=== PATIENT | male | born 1950 | race Caucasian/White ===

== ENCOUNTER 2017-04-14 19:32 | Inpatient (IN) | payer OTHER ==
[~2017-04-14] VITALS: Ht 177.8 cm; Wt 117.9 kg
--- NOTE | ~2017-04-14 | EKG ---
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1950 Requested By: Alex Holt Order Number: [id number] MD: Rodo Hernandez Measurements Intervals [place] Rate: 146 P: -27 ND: 94 QRS: 89 QRSD: 82 T: -33 QT: 291 QTc: 454 Interpretive Statements Sinus tachycardia Borderline right axis deviation Nonspecific ST and T wave abnormality No previous ECG available for comparison Electronically Signed On 04-15-2017 13:05:36 [employer]ULT[employer] by Rodo Hernandez [email or web address] <ELECTRONICALLY SIGNED> By: Rodo Hernandez MD, [facility] 04/15/17 1305 34 34 Rodo Hernandez MD, [facility] /EPI
--- NOTE | ~2017-04-14 | D ---
[facility] [place] [address] DISCHARGE SUMMARY Name: CHON PERRY Room #: 438-P [facility] IN ..#: [id number] Admission: 04/14/17 Attend Phys: Oren Mccann DO Discharge: 04/15/17 Date of : 48 Report #: [id number] THIS REPORT FOR: //name// CC: Oren Brody DATE OF SERVICE: 04/15/2017 TIME OF : 6:10 a.m. HOSPITAL COURSE: The patient is a 67-year-old gentleman who presented to the ER for evaluation of shortness of breath. The patient's reported associated fever, nausea, vomiting, weakness and a lump in the back of his head. Symptoms have started the day before admission. He also reported worsening edema and erythema of his lower extremities with oozing of his legs. The patient does reside at [facility], has been there for 4 years. 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 Sats were 88% on presentation, and he was diagnosed with sepsis as well as acute kidney injury. The stated that he was no code and wanted comfort measures only and did not want him to have a code blue resuscitation or intubation. The patient did pass away at the above stated date and time. The body was released with the family to the home of their choice. <ELECTRONICALLY SIGNED> By: Oren Mccann DO 04/15/17 1755 1612 1706 Oren Mccann DO /nt
[2017-04-14 19:33] VITALS: BP 145/111
[2017-04-14 20:13] LABS: HEMATOCRIT 52.6 % (42.0-52.0); HEMOGLOBIN 17.2 gm/dL (14.0-18.0); MCH 32.4 pg (26.0-34.0); MCHC 32.7 g/dL (28.0-37.0); MCV 99.2 fL (80.0-100.0); PLATELET COUNT 171 thou/uL (150-400); RBC 5.31 mil/uL (4.50-6.00); RDW 14.4 % (10.5-14.5); WBC 11.2 thou/uL (4.0-11.0)
[2017-04-14 20:18] LABS: BE(vivo) -19.7 mmol/L (-2 to +3); HCO3 4.7 mmol/L (22.0-26.0); PCO2 11.9 mmHg (35.0-45.0); PO2 104.3 mmHg (80.0-100.0); pH 7.211 (7.360-7.450); sO2 96.9 % (92.0-98.0)
[2017-04-14 20:26] LABS: ANION GAP 30 mmol/L (7-16); BUN 42 mg/dL (7-18); CALCIUM 8.6 mg/dL (8.5-10.1); CHLORIDE 97 mmol/L (98-107); CREATININE 4.2 mg/dL (0.7-1.3); GLUCOSE 299 mg/dL (74-106); POTASSIUM 4.4 mmol/L (3.5-5.1); SODIUM 138 mmol/L (136-145)
[2017-04-14 20:27] LABS: CO2 11 mmol/L (21-32)
[2017-04-14 20:28] LABS: APTT 38.7 Seconds (24.5-32.8); INR 1.3; PROTIME 13.3 Seconds (9.3-11.4)
[2017-04-14 20:36] LABS: ALBUMIN 2.6 g/dL (3.4-5.0); SGOT 39 U/L (15-37); SGPT 29 U/L (30-65); TOTAL BILIRUBIN 0.5 mg/dL (<0.1-1.0); TOTAL PROTEIN 6.9 g/dL (6.4-8.2); TROPONIN-I < 0.04 ng/mL (<0.06)
[2017-04-14 20:40] LABS: ABSOLUTE NEUTROPHILS 7.6 thou/uL (1.4-8.2); METAMYELOCYTES 20 %; MYELOCYTES 3 %
[2017-04-14 20:41] LABS: POLYCHROMASIA SLIGHT
[2017-04-14] MEDS ORDERED: ASPIR 8181 MG PO (21:53)
[2017-04-14] MEDS ORDERED: LORAZEPAM 22 MG/1 ML IM ×2 (21:54→21:56)
[2017-04-14] MEDS ORDERED: FUROSEMIDE10 MG/1 M2 IM (21:57)
[2017-04-14] MEDS ORDERED: GLUCOPHAGE1000 MG PO (21:58)
[2017-04-14] MEDS ORDERED: LASIX 40 MG TAB40 M2 PO (21:58)
[2017-04-14] MEDS ORDERED: [UNRECOGNIZED DRUG - OTHER] TOP (22:01)
[2017-04-14 22:18] LABS: URINE BLOOD 3+ (Negative); URINE CLARITY SL CLOUDY; URINE GLUCOSE-RANDOM* TRACE (Negative); URINE KETONES TRACE (Negative); URINE LEUKOCYTES-REFLEX NEGATIVE (Negative); URINE NITRITE-REFLEX NEGATIVE (Negative); URINE PROTEIN (DIPSTICK) 1+ (Negative); URINE SPECIFIC GRAVITY >= 1.030 (1.005-1.035); URINE UROBILINOGEN 0.2 E.U./dl (0.2-1.0)
[2017-04-14 22:20] LABS: URINE COLOR AMBER
[2017-04-14 22:26] LABS: ICTOTEST (BILI CONFIRMATORY) Negative (Negative); URINE BILIRUBIN NEGATIVE (Negative)
[2017-04-14 22:27] LABS: CASTS None Seen /LPF (None Seen); CRYSTALS None Seen /LPF (None Seen); SQUAMOUS 0-3 Few /LPF (0-3); URINE WBC-REFLEX None Seen /HPF (0-5)
[2017-04-14 22:28] LABS: URINE RBC 0-2 Rare /HPF (0-2)
[2017-04-14 23:31] VITALS: BP 122/68
[2017-04-15] MEDS ORDERED: ST. JOSEPH ASPI81 MG PO (01:27)
[2017-04-15] MEDS ORDERED: LORAZEPAM 22 MG/1 ML IM (01:31)
[2017-04-15] MEDS ORDERED: LASIX 20 MG TAB20 MG IM (01:34)
[2017-04-15] MEDS ORDERED: LASIX 40 MG TAB40 M2 IM (01:35)
[2017-04-15 03:02] VITALS: BP 129/70
== END 2017-04-15 06:10 | DRG 871 ==
LOC: ER 19:32 → EROBS 21:00 → 4S 23:18
PROVIDERS: Emergency Medicine; Physician Assistant
DX: A41.9 Sepsis, unspecified organism (principal); E43 Unspecified severe protein-calorie malnutrition; J96.90 Respiratory failure, unspecified, unspecified whether with hypoxia or hypercapnia; N17.9 Acute kidney failure, unspecified; L03.116 Cellulitis of left lower limb; R65.20 Severe sepsis without septic shock; E11.51 Type 2 diabetes mellitus with diabetic peripheral angiopathy without gangrene; Z86.718 Personal history of other venous thrombosis and embolism; Z66 Do not resuscitate; Z51.5 Encounter for palliative care
CPT/HCPCS: 10195